=== PATIENT | male | born 1995 | race African-American/Black ===

== ENCOUNTER 2019-07-01 21:03 | Emergency (ER) | payer BC ==
[~2019-07-01] VITALS: Ht 180.3 cm; Wt 68.2 kg
[2019-07-01 22:43] LABS: COLLECTION METHOD CLEAN CATCH
[2019-07-01 22:45] VITALS: TEMP 100.7
[2019-07-01 22:50] LABS: PH 7 (5-8); SQUAMOUS EPITHELIAL 0-2 /hpf; URINE APPEARANCE Clear; URINE BACTERIA None Seen /hpf; URINE BILIRUBIN Negative (NEGATIVE); URINE BLOOD Negative (NEGATIVE); URINE COLOR Yellow; URINE GLUCOSE Negative (NEGATIVE); URINE KETONE Negative (NEGATIVE); URINE LEUKOCYTE ESTERASE Negative (NEGATIVE); URINE NITRATE Negative (NEGATIVE); URINE PROTEIN(semi-quant) Negative (NEGATIVE); URINE RBC 0-2 /hpf; URINE UROBILINOGEN >=4.0 mg/dL (NEGATIVE)
[2019-07-01] MEDS ORDERED: TAMIFLU 75MG75 MG PO (23:00)
[2019-07-01 23:16] VITALS: BP 111/65; PULSE 94
== END 2019-07-01 23:16 | disposition home or self-care (01) ==
LOC: COL.ER 21:03
PROVIDERS: Nurse Practitioner
DX: J11.1 Influenza due to unidentified influenza virus with other respiratory manifestations (principal)